=== PATIENT | male | born 1990 | race Asian ===

== ENCOUNTER 2022-11-27 00:48 | Emergency (ER) | payer MEDICAID ==
[~2022-11-27] VITALS: Ht 175.3 cm; Wt 104.8 kg
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
[2022-11-27 00:56] VITALS: BP_SYST 133; PULSE 100; RESP 17; TEMP 99; O2SAT 100
--- NOTE | 2022-11-27 01:00 | NUR ---
Patient to ER bed CH1 to gown for evaluation. Side rails up.
--- NOTE | 2022-11-27 01:04 | NUR ---
Dr. Jalloh with patient in [facility] for MSE.
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
--- NOTE | 2022-11-27 01:42 | NUR ---
Pt requesting pain medication, states that his right shoulder pain is 9/10. MD MADE AWARE. Awaiting new orders.
[2022-11-27 01:44] VITALS: BP_SYST 133; PULSE 100; RESP 17; TEMP 99; O2SAT 100
--- NOTE | 2022-11-27 01:44 | NUR ---
Patient given written and verbal discharge instructions and verbalizes understanding. ER Dr. Jalloh discussed with patient the results and treatment provided. Patient in stable condition. ID arm band removed. Patient educated on pain management and to follow up with PMD. Pain Scale 0. Opportunity for questions provided and answered. Medication side effect fact sheet provided.
[2022-11-27] MEDS ORDERED: ACETAMINOPHEN 500 MG TABLET PO ONE (01:45)
== END 2022-11-27 01:44 ==
LOC: SED 00:48
DX: Z02.89 Encounter for other administrative examinations (principal); M25.511 Pain in right shoulder; Z79.899 Other long term (current) drug therapy
CPT/HCPCS: 73030; 99283